=== PATIENT | female | born 1985 | race African-American/Black ===

== ENCOUNTER 2017-12-13 07:16 | Emergency (ER) | payer MEDICAID ==
[~2017-12-13] VITALS: Ht 160 cm; Wt 96.2 kg
[2017-12-13 08:15] VITALS: BP 126/72
[2017-12-13] MEDS ORDERED: LIDOCAINE HCL 1% 20ML VIAL (Pyxis) INJ MC ONE (08:30)
[2017-12-13] MEDS ORDERED: BACITRACIN ZINC OINT UDPKT TOP ONE (08:30)
[2017-12-13] MEDS ORDERED: LIDOCAINE HCL/PF 1% 10 MG/ML 5ML VIAL IJ ONE (08:45)
== END 2017-12-13 09:37 | disposition home or self-care (01) ==
LOC: ER 08:16
DX: L03.012 Cellulitis of left finger (principal)
CPT/HCPCS: 10060; 81025; 99283; J3490

== ENCOUNTER 2017-12-20 05:59 | Emergency (ER) | payer MEDICAID ==
[~2017-12-20] VITALS: Ht 160 cm; Wt 77.0 kg
[2017-12-20] MEDS ORDERED: LIDOCAINE HCL/PF 1% 10 MG/ML 30ML VIAL INFIL ONE (07:00)
[2017-12-20] MEDS ORDERED: BACITRACIN ZINC OINT UDPKT TOP ONE (07:00)
[2017-12-20] MEDS ORDERED: LIDOCAINE HCL/PF 1% 10 MG/ML 5ML VIAL IJ ONE (07:30)
[2017-12-20] MEDS ORDERED: CEFTRIAXONE 1 G PREMIX 50 ML IV ONE (08:45)
[2017-12-20] MEDS ORDERED: VANCOMYCIN 1 G PREMIX 200 ML IV ONE (08:45)
[2017-12-20] MEDS ORDERED: SODIUM CHLORIDE 0.9% 1000ML BAG (SEPSIS BOLUS) IV ONE (08:45)
[2017-12-20 08:57] LABS: BASOPHILS % 0.8 % (0.0-2.0); EOSINOPHILS % 0.4 % (0.0-5.0); HEMOGLOBIN. 14.1 g/dL (12.0-16.0); LYMPHOCYTES % 36.5 % (20.0-50.0); MEAN CORPUSCULAR HEMOGLOBIN 30.9 pg (28.0-32.0); MEAN PLATELET VOLUME 7.1 fl (7.4-10.4); MONOCYTES % 7.6 % (2.0-8.0); NEUTROPHILS % 54.7 % (40.0-76.0); PLATELET 298 x1000/uL (130-400); RED BLOOD CELL COUNT 4.56 mill/uL (4.2-5.4); RED CELL DISTRIBUTION WIDTH 12.6 % (11.6-14.6)
[2017-12-20 09:04] LABS: CHLORIDE 103 mEq/L (98-107); INR 1.1
[2017-12-20 09:24] LABS: HCG SCREEN NEGATIVE
[2017-12-20 12:10] VITALS: BP 112/78
== END 2017-12-20 12:12 | disposition home or self-care (01) ==
LOC: ER 05:59
DX: L03.012 Cellulitis of left finger (principal)
CPT/HCPCS: 10060; 36415; 73130; 80053; 83605; 84703; 85025; 85610; 87040; 87070; 87077; 87186; 87205; 96365; 96366; 96367; 99285; J0696; J3370; J3490; J7030; X7700; Z7610